=== PATIENT | female | born 1955 | race Native Hawaiian/Other Pacific Islander ===

== ENCOUNTER 2016-10-15 06:38 | Outpatient (CLI) | payer BC ==
[2016-10-15 08:00] LABS: PLATELET COUNT 324 K/uL (152-353)
[2016-10-15 08:22] LABS: POTASSIUM 3.8 mmol/L (3.6-5.2); SODIUM 138 mmol/L (136-145)
== END 2016-10-15 19:01 | disposition home or self-care (01) ==
LOC: LABW 06:38
PROVIDERS: Internal Medicine
DX: R73.01 Impaired fasting glucose (principal); E78.4 Other hyperlipidemia; E03.8 Other specified hypothyroidism; Z79.899 Other long term (current) drug therapy; Z51.81 Encounter for therapeutic drug level monitoring
CPT/HCPCS: 36415; 80053; 80061; 82550; 83036; 84439; 84443; 85027; 86140

== ENCOUNTER 2016-10-27 12:04 | Outpatient (CLI) | payer BC | END 2016-10-27 19:14 | disposition home or self-care (01) | LOC: LABW 12:04 | DX: M19.041 Primary osteoarthritis, right hand (principal); L40.8 Other psoriasis; Z79.899 Other long term (current) drug therapy; M06.4 Inflammatory polyarthropathy; Z51.81 Encounter for therapeutic drug level monitoring; D50.8 Other iron deficiency anemias | CPT/HCPCS: 36415; 82728; 83540; 83550; 84550; 85651; 86039; 86140; 86200 ==

== ENCOUNTER 2017-08-16 07:52 | Outpatient (CLI) | payer BC | END 2017-08-16 20:22 | disposition home or self-care (01) | LOC: RAD 07:52 | DX: R06.02 Shortness of breath (principal) ==

== ENCOUNTER 2017-09-17 15:04 | Outpatient (CLI) | payer BC | END 2017-09-17 21:32 | disposition home or self-care (01) | LOC: RESP 15:04 | DX: R06.02 Shortness of breath (principal) | CPT/HCPCS: 94640; 94664 ==

== ENCOUNTER 2018-10-13 08:20 | Outpatient (CLI) | payer BC ==
[2018-10-13 08:52] LABS: PLATELET COUNT 515 K/uL (152-353)
[2018-10-13 09:05] LABS: POTASSIUM 4.2 mmol/L (3.6-5.2)
== END 2018-10-13 19:13 | disposition home or self-care (01) ==
LOC: RAD 08:20
PROVIDERS: Nurse Practitioner
DX: E03.9 Hypothyroidism, unspecified (principal); I10 Essential (primary) hypertension; E78.00 Pure hypercholesterolemia, unspecified; R53.82 Chronic fatigue, unspecified; E55.9 Vitamin D deficiency, unspecified; D50.8 Other iron deficiency anemias; M54.5 Low back pain
CPT/HCPCS: 36415; 80053; 80061; 82306; 82607; 83540; 84439; 84443; 85027

== ENCOUNTER 2018-10-28 15:26 | Outpatient (CLI) | payer BC | END 2018-10-28 19:36 | disposition home or self-care (01) | LOC: LAB 15:26 | DX: E03.9 Hypothyroidism, unspecified (principal); I10 Essential (primary) hypertension; E78.00 Pure hypercholesterolemia, unspecified; R53.82 Chronic fatigue, unspecified; E55.9 Vitamin D deficiency, unspecified; D50.8 Other iron deficiency anemias | CPT/HCPCS: 36415; 84443 ==

== ENCOUNTER 2018-11-24 13:39 | Outpatient (CLI) | payer BC ==
[2018-11-24 13:52] LABS: PLATELET COUNT 656 K/uL (152-353)
[2018-11-24 14:19] LABS: POTASSIUM 3.7 mmol/L (3.6-5.2)
== END 2018-11-24 19:16 | disposition home or self-care (01) ==
LOC: RAD 13:39
PROVIDERS: Nurse Practitioner
DX: R53.82 Chronic fatigue, unspecified (principal); D50.8 Other iron deficiency anemias; R05 Cough
CPT/HCPCS: 36415; 80048; 82607; 82728; 83540; 83550; 84443; 85027

== ENCOUNTER 2019-08-09 16:07 | Outpatient (CLI) | payer BC | END 2019-08-09 20:26 | disposition home or self-care (01) | LOC: US 16:07 | DX: R22.43 Localized swelling, mass and lump, lower limb, bilateral (principal); M79.662 Pain in left lower leg; M79.661 Pain in right lower leg ==

== ENCOUNTER 2021-09-19 11:41 | Outpatient (CLI) | payer BC | END 2021-09-19 21:45 | disposition home or self-care (01) | LOC: RAD 11:41 | PROVIDERS: ATTEND Internal Medicine | DX: R07.81 Pleurodynia (principal); W19.XXXA Unspecified fall, initial encounter ==

== ENCOUNTER 2021-12-04 09:45 | Outpatient (CLI) | payer BC | END 2021-12-04 19:22 | disposition home or self-care (01) | LOC: RAD 09:45 | PROVIDERS: ATTEND Physician Assistant | DX: M53.3 Sacrococcygeal disorders, not elsewhere classified (principal); W19.XXXA Unspecified fall, initial encounter ==

== ENCOUNTER 2022-01-07 15:07 | Emergency (ER) | payer BC ==
[~2022-01-07] VITALS: Ht 152.4 cm; Wt 74.4 kg
[2022-01-07 15:13] VITALS: TEMP 97.8
[2022-01-07 16:45] VITALS: BP 166/72
== END 2022-01-07 16:55 | disposition home or self-care (01) ==
LOC: ED 15:07
DX: R07.81 Pleurodynia (principal); S22.42XA Multiple fractures of ribs, left side, initial encounter for closed fracture; W50.0XXA Accidental hit or strike by another person, initial encounter; W18.39XA Other fall on same level, initial encounter; Y93.E1 Activity, personal bathing and showering; Y92.832 Beach as the place of occurrence of the external cause
CPT/HCPCS: 96372; 99283; J1885; J2930

== ENCOUNTER 2022-07-16 09:46 | Outpatient (CLI) | payer BC ==
[2022-07-16 10:39] LABS: PLATELET COUNT 335 K/uL (152-353)
== END 2022-07-16 19:24 | disposition home or self-care (01) ==
LOC: LABW 09:46
PROVIDERS: ATTEND Internal Medicine
DX: I10 Essential (primary) hypertension (principal); R53.83 Other fatigue; Z79.899 Other long term (current) drug therapy; E55.9 Vitamin D deficiency, unspecified; E78.49 Other hyperlipidemia; R79.89 Other specified abnormal findings of blood chemistry
CPT/HCPCS: 36415; 80053; 80061; 82043; 82306; 82550; 82553; 82570; 82607; 82728; 82746; 83036; 83540; 83550; 83735; 83970; 84100; 84156; 84439; 84443; 85027; 85652; 86038